=== PATIENT | male | born 1945 | race Caucasian/White ===

== ENCOUNTER 2021-07-11 10:50 | Day surgery (SDC) | payer OTHER ==
[2021-07-06 12:31] VITALS: BMI 37.8
[2021-07-11] MEDS ORDERED: BUPIVACAINE HCL 50 ML ONE (12:57)
[2021-07-11] MEDS ORDERED: ceFAZolin SODIUM 1 GM VIAL ONE ×2 (12:58→13:26)
[2021-07-11] MEDS ORDERED: ERYTHROMYCIN 0.5% OPHTHALMIC OINTMENT 3.5 GM TUBE ONE (12:58)
[2021-07-11] MEDS ORDERED: LIDOCAINE 1%/EPI 1:100000 (20 ML MULTI DOSE VIAL) ONE (12:58)
[2021-07-11] MEDS ORDERED: TETRACAINE 0.5% OPHTH SOLN 2 ML BOTTLE ONE (12:58)
[2021-07-11] MEDS ORDERED: MIDAZOLAM HCL 2 MG/2 ML SINGLE DOSE VIAL ONE (13:16)
[2021-07-11] MEDS ORDERED: PROPOFOL 20 ML ONE (13:22)
[2021-07-11] MEDS ORDERED: DEXAMETHASONE SOD PHOSPHATE 4 MG/1 ML VIAL ONE (13:26)
[2021-07-11] MEDS ORDERED: ONDANSETRON 4 MG/2 ML VIAL ONE (13:26)
[2021-07-11] MEDS ORDERED: KETOROLAC TROMETHAMINE 30 MG/1 ML VIAL ONE (13:26)
[2021-07-11] MEDS ORDERED: oxyCODONE HCL 5 MG TABLET PO PRN (14:25)
[2021-07-11] MEDS ORDERED: ONDANSETRON 4 MG/2 ML VIAL IVPUSH PRN (14:25)
[2021-07-11] MEDS ORDERED: PROMETHAZINE HCL 25 MG/1 ML VIAL IVPUSH PRN (14:25)
[2021-07-11 15:32] VITALS: TEMP 98
[2021-07-11 16:21] VITALS: BP 139/71; PULSE 69
== END 2021-07-11 16:10 | disposition home or self-care (01) ==
LOC: FASU 10:50
PROVIDERS: ATTEND Ophthalmology
PROC: 08BQ0ZX Excision of Right Lower Eyelid, Open Approach, Diagnostic (ICD-10-PCS; 2021-07-11)
PROC: 08SQ0ZZ Reposition Right Lower Eyelid, Open Approach (ICD-10-PCS; principal; 2021-07-11 13:36)
DX: H02.002 Unspecified entropion of right lower eyelid (principal); H02.005 Unspecified entropion of left lower eyelid; H11.89 Other specified disorders of conjunctiva
CPT/HCPCS: 94760

== ENCOUNTER 2021-10-10 07:27 | Day surgery (SDC) | payer OTHER ==
[2021-10-10 08:06] VITALS: BMI 39.2
[2021-10-10] MEDS ORDERED: ONDANSETRON 4 MG/2 ML VIAL IVPUSH PRN (08:23)
[2021-10-10] MEDS ORDERED: ACETAMINOPHEN 325 MG TABLET (FP) PO PRN (08:23)
[2021-10-10] MEDS ORDERED: oxyCODONE HCL 5 MG TABLET PO PRN ×2 (08:23)
[2021-10-10] MEDS ORDERED: MIDAZOLAM HCL 2 MG/2 ML SINGLE DOSE VIAL ONE (08:46)
[2021-10-10] MEDS ORDERED: PROPOFOL 20 ML ONE ×2 (08:46)
[2021-10-10] MEDS ORDERED: DEXAMETHASONE SOD PHOSPHATE 4 MG/1 ML VIAL ONE (08:47)
[2021-10-10] MEDS ORDERED: ceFAZolin SODIUM 1 GM VIAL ONE (08:47)
[2021-10-10] MEDS ORDERED: KETOROLAC TROMETHAMINE 30 MG/1 ML VIAL ONE (08:47)
[2021-10-10] MEDS ORDERED: TETRACAINE 0.5% OPHTH SOLN 2 ML BOTTLE ONE (08:49)
[2021-10-10] MEDS ORDERED: ERYTHROMYCIN 0.5% OPHTHALMIC OINTMENT 3.5 GM TUBE ONE (08:49)
[2021-10-10] MEDS ORDERED: LIDOCAINE 1%/EPI 1:100000 (20 ML MULTI DOSE VIAL) ONE (08:50)
[2021-10-10] MEDS ORDERED: BUPIVACAINE HCL 50 ML ONE (08:50)
[2021-10-10] MEDS ORDERED: POVIDONE-IODINE 5% OPHTHALMIC PREP 30 ML SOLUTION ONE (08:50)
[2021-10-10 11:07] VITALS: TEMP 97.8
[2021-10-10 11:42] VITALS: BP 139/69; PULSE 69
== END 2021-10-10 14:55 | disposition home or self-care (01) ==
LOC: FASU 07:27
PROVIDERS: ATTEND Ophthalmology
PROC: 08SR0ZZ Reposition Left Lower Eyelid, Open Approach (ICD-10-PCS; principal; 2021-10-10 09:42)
DX: H02.035 Senile entropion of left lower eyelid (principal)
CPT/HCPCS: 88304-TC; 94760